=== PATIENT | female | born 1950 | race Caucasian/White ===

== ENCOUNTER 2019-07-27 06:12 | Inpatient (IN) ==
[2019-07-27] MEDS ORDERED: CeFAZolin Syr 2,000MG/20 ML 2,000 MG/20 ML SYRINGE IVPB ONE (06:44)
[2019-07-27] MEDS ORDERED: Ringers Solution, Lactated 1,000 ML IVC SCH (06:45)
[2019-07-27] MEDS ORDERED: Heparin 1,000 UNITS/500 mL 500 ML ONE ×2 (06:49→07:09)
[2019-07-27] MEDS ORDERED: Lidocaine -MPF 2% 2 ML VIAL ONE (06:54)
[2019-07-27] MEDS ORDERED: Dexamethasone 4 MG/ML VIAL ONE (06:54)
[2019-07-27] MEDS ORDERED: *HR* Succinylcholine 200 MG/10 ML VIAL IVP ONE (06:54)
[2019-07-27] MEDS ORDERED: Lidocaine -MPF 4% 5 ML AMPUL ONE (06:54)
[2019-07-27] MEDS ORDERED: Ondansetron 4 MG/2 ML VIAL ONE (06:54)
[2019-07-27] MEDS ORDERED: *HR* Remifentanil 2 MG VIAL IVP ONE (06:55)
[2019-07-27] MEDS ORDERED: *HR* Phenylephrine 10 MG/ML VIAL ONE (06:55)
[2019-07-27] MEDS ORDERED: *HR* Midazolam HCl 2 MG/2 ML VIAL ONE (06:56)
[2019-07-27] MEDS ORDERED: *HR* FentaNYL (PF) 100 MCG/2 ML VIAL ONE ×2 (06:56)
[2019-07-27] MEDS ORDERED: EPHEDrine 50 MG/ML VIAL ONE (06:58)
[2019-07-27] MEDS ORDERED: *HR* Propofol 200 MG/20 ML VIAL IVP ONE (07:00)
[2019-07-27] MEDS ORDERED: Lidocaine 1% 20 ML MDV ONE (07:10)
[2019-07-27] MEDS ORDERED: Protamine Sulfate 50 MG/5 ML VIAL IVP ONE (07:10)
[2019-07-27] MEDS ORDERED: *HR* Heparin 5,000 UNIT/ML VIAL ONE ×2 (07:14→09:53)
[2019-07-27] MEDS ORDERED: NiCARdipine 2.5 MG/10 ML Syringe IVPB ONE (07:20)
[2019-07-27] MEDS ORDERED: *HR* Vasopressin 20 UNIT/ML VIAL ONE (07:20)
[2019-07-27] MEDS ORDERED: *HR* HYDROmorphone PF 0.5 MG/0.5 ML SYRINGE IVP PRN (07:22)
[2019-07-27] MEDS ORDERED: *HR* OxyCODONE Immed Rel 5 MG TABLET PO PRN (07:22)
[2019-07-27] MEDS ORDERED: Ondansetron 4 MG/2 ML VIAL IVP ONE (07:22)
[2019-07-27] MEDS ORDERED: *HR* HYDROcodone/Acet 5/325 mg TABLET PO PRN (11:38)
[2019-07-27] MEDS ORDERED: Naloxone 0.4 MG/ML INJ IVP PRN (11:38)
[2019-07-27] MEDS ORDERED: Acetaminophen 325 MG TABLET PO PRN (11:38)
[2019-07-27 13:05] LABS: Basophils % 0.2 %; Eosinophils % 0.2 %; Hematocrit 39.8 % (35.3-44.9); Hemoglobin 13.5 g/dL (11.5-15.4); Immature Granulocytes % 0.5 % (0-4); Lymphocytes # 3.6 K/mcL (0.6-4.6); Lymphocytes % 32.5 %; Mean Corpuscular HGB Conc 33.9 g/dL (31.6-35.5); Mean Corpuscular Hemoglobin 33.3 pg (28.0-33.3); Mean Platelet Volume 9.9 fL (9.4-12.4); Monocytes # 0.2 K/mcL (0.0-1.3); Monocytes % 1.7 %; Neutrophils # 7.2 K/mcL (1.6-8.9); Nucleated Red Blood Cells 0.2 /100 WBC (0); Platelet Count 193 K/mcL (140-400); Red Blood Count 4.06 M/mcL (3.82-4.97); Red Cell Distribution Width 12.6 % (11.5-14.5); Segmented Neutrophils % 64.9 %; White Blood Count 11.1 K/mcL (4.3-11.1)
[2019-07-27] MEDS: ceFAZolin 2,000 MG in 0.9 % Sodium Chloride 100 ML IVPB SCH ×2 (15:30→23:23)
[2019-07-28] MEDS: ceFAZolin 2,000 MG in 0.9 % Sodium Chloride 100 ML IVPB SCH (07:29)
[2019-07-28] MEDS ORDERED: valACYclovir 500 MG TABLET PO SCH (09:00)
[2019-07-28] MEDS ORDERED: Aspirin Enteric Coated 81 MG Tablet PO SCH (09:00)
[2019-07-28 11:01] VITALS: BP 156/78
== END 2019-07-28 12:43 | disposition home or self-care (01) | DRG 39 ==
LOC: SAMDAY 06:12 → 3NENU 12:08
PROVIDERS: ADMIT Surgery Vascular Surgery; ATTEND Surgery Vascular Surgery